=== PATIENT | male | born 1985 | race African-American/Black ===

== ENCOUNTER 2017-01-05 18:34 | Emergency (ER) | payer SELFPAY ==
[~2017-01-05] VITALS: Ht 175.3 cm; Wt 115.6 kg
[2017-01-05 18:40] VITALS: BP 133/92
[2017-01-05] MEDS ORDERED: BACTRIM,SEPT1 TABLET PO (19:37)
[2017-01-05] MEDS ORDERED: KEFLEX500 MG PO (19:37)
== END 2017-01-05 20:05 | disposition home or self-care (01) ==
LOC: EME 18:34
DX: L02.01 Cutaneous abscess of face (principal)
CPT/HCPCS: 99281; 99283

== ENCOUNTER 2017-12-23 14:42 | Inpatient (IN) | payer BC ==
[~2017-12-23] VITALS: Ht 175.3 cm; Wt 113.3 kg
[~2017-12-23 14:42] MED LIST: BACTRIM,SEPT1 TABLET PO; KEFLEX500 MG PO
[2017-12-23 15:43] LABS: HEMATOCRIT 41.5 % (38.0-50.0); HEMOGLOBIN 13.6 G/DL (12.5-16.6); MCH 27.8 PG (29.0-34.0); MCHC 32.8 G/DL (30.0-36.0); MCV 84.9 FL (86-99); PLATELET COUNT 288 K/uL (156-360); RBC DIS.WIDTH-CV 13.2 % (11.8-14.6); RBC DIS.WIDTH-SD 40.6 % (39-53); RED BLOOD COUNT 4.89 M/uL (4.00-5.50); WHITE BLOOD COUNT 16.8 K/uL (4.1-10.2)
[2017-12-23 16:04] LABS: CHLORIDE 101 mEq/L (99-109); POTASSIUM 4.2 mEq/L (3.7-5.4); SODIUM 138 mEq/L (136-147)
[2017-12-23 16:05] LABS: GLUCOSE 109 mg/dL (70-99)
[2017-12-23 16:09] LABS: CREATININE 1.4 mg/dL (0.6-1.3); GFR ESTIMATE (CALCULATED) > 59 mL/min/ (58.99-99999)
[2017-12-23 16:10] LABS: UREA NITROGEN (BUN) 14 mg/dL (9-23)
[2017-12-23 16:12] LABS: URIC ACID 8.7 mg/dL (3.1-9.2)
[2017-12-23 16:59] LABS: ERTH.SED.RATE 97 MM/HR (0-15)
[2017-12-24 00:05] VITALS: BP 130/81
[2017-12-24 05:26] VITALS: BP 125/76
[2017-12-24 06:18] LABS: BASOPHIL (%) 0.4 % (0-1); EOSINOPHIL (%) 2.7 % (0-5); EOSINOPHIL COUNT 0.3 K/uL (0-0.3); HEMATOCRIT 37.3 % (38.0-50.0); IMMATURE GRANULOCYTE (%) 0.4 % (0.0-0.7); LYMPHOCYTE (%) 18.7 % (15-42); LYMPHOCYTE COUNT 2.1 K/uL (1.0-2.8); MCH 26.8 PG (29.0-34.0); MCHC 31.1 G/DL (30.0-36.0); MCV 86.1 FL (86-99); MONOCYTE COUNT 1.3 K/uL (0-0.8); NEUTROPHIL (%) 65.8 % (45-76); NEUTROPHIL COUNT 7.4 K/uL (1.8-6.4); PLATELET COUNT 266 K/uL (156-360); RBC DIS.WIDTH-CV 13.2 % (11.8-14.6); RBC DIS.WIDTH-SD 41.1 % (39-53); RED BLOOD COUNT 4.33 M/uL (4.00-5.50); WHITE BLOOD COUNT 11.2 K/uL (4.1-10.2)
[2017-12-24 06:23] LABS: HEMOGLOBIN 11.6 G/DL (12.5-16.6)
[2017-12-24 06:26] LABS: CHLORIDE 102 MEQ/L (99-109); CREATININE 1.2 MG/DL (0.6-1.3); GFR ESTIMATE (CALCULATED) > 59 mL/min/ (58.99-99999); GLUCOSE 121 mg/dL (70-99); POTASSIUM 3.8 MEQ/L (3.7-5.4); SODIUM 140 MEQ/L (136-147); UREA NITROGEN (BUN) 19 mg/dL (9-23)
[2017-12-24 06:55] LABS: INTER. NORMALIZED RATIO 1.3
[2017-12-24 06:58] LABS: PTT 29.2 SEC (25-37)
[2017-12-24 08:24] VITALS: BP 155/88
[2017-12-24 11:28] LABS: CRYSTALS NO CRYSTALS SEEN
[2017-12-24 12:14] LABS: APPEARANCE YELLOW-CLEAR; MONONUCLEAR WBC'S 9 %; POLYNUCLEAR WBC'S 91 % (0-25); RED CELL COUNT 1000 /MM^3 (0-1); SYNOVIAL FLUID EOSINOPHILS 0 % (0-25); WHITE CELL COUNT 780 /MM^3 (0-200.0)
[2017-12-24 16:11] VITALS: BP 142/79
[2017-12-24 19:30] VITALS: BP 134/83
[2017-12-24 23:41] VITALS: BP 134/91
[2017-12-25 06:59] LABS: BASOPHIL (%) 0.5 % (0-1); EOSINOPHIL (%) 4.1 % (0-5); EOSINOPHIL COUNT 0.3 K/uL (0-0.3); HEMATOCRIT 38.6 % (38.0-50.0); IMMATURE GRANULOCYTE (%) 0.3 % (0.0-0.7); LYMPHOCYTE (%) 23.5 % (15-42); LYMPHOCYTE COUNT 1.7 K/uL (1.0-2.8); MCHC 31.1 G/DL (30.0-36.0); MCV 86.7 FL (86-99); MONOCYTE COUNT 0.7 K/uL (0-0.8); NEUTROPHIL (%) 62.6 % (45-76); NEUTROPHIL COUNT 4.6 K/uL (1.8-6.4); PLATELET COUNT 276 K/uL (156-360); RBC DIS.WIDTH-SD 41.4 % (39-53); RED BLOOD COUNT 4.45 M/uL (4.00-5.50); WHITE BLOOD COUNT 7.4 K/uL (4.1-10.2)
[2017-12-25 07:27] LABS: CHLORIDE 105 MEQ/L (99-109); CREATININE 0.9 MG/DL (0.6-1.3); GFR ESTIMATE (CALCULATED) > 59 mL/min/ (58.99-99999); GLUCOSE 105 mg/dL (70-99); POTASSIUM 4.4 MEQ/L (3.7-5.4); SODIUM 139 MEQ/L (136-147); UREA NITROGEN (BUN) 9 mg/dL (9-23)
[2017-12-25 08:07] VITALS: BP 157/91
[2017-12-25 16:57] VITALS: BP 149/87
[2017-12-25 23:52] VITALS: BP 157/88
[2017-12-26 07:23] VITALS: BP 138/74
[2017-12-26 15:42] VITALS: BP 138/90
[2017-12-26 23:34] VITALS: BP 135/76
[2017-12-27 08:23] VITALS: BP 140/71
[2017-12-27] MEDS ORDERED: ANCEF,KEFZOL1 GM IM (12:27)
[2017-12-27] MEDS ORDERED: ANCEF,KEFZOL1 GM IV (13:52)
[2017-12-27 15:54] VITALS: BP 160/58
[2017-12-27 23:40] VITALS: BP 137/88
[2017-12-28 08:00] VITALS: BP 160/80
[2017-12-28] MEDS ORDERED: HYDROCODON-ACE1 EAC7 PO (16:50)
[2017-12-28] MEDS ORDERED: MOTRIN600 MG PO (16:50)
== END 2017-12-28 17:30 | disposition home or self-care (01) | DRG 603 ==
LOC: EME 14:42 → EDOF 22:14 → 3EAST 22:14 → ENRESERV 22:16 → CANRESERV 23:16 → 3EAST 23:56
PROVIDERS: Hospitalist; Internal Medicine; Physician Assistant
PROC: 02HV33Z Insertion of Infusion Device into Superior Vena Cava, Percutaneous Approach (ICD-10-PCS; principal; 2017-12-27)
DX: L03.116 Cellulitis of left lower limb (principal); S86.812A Strain of other muscle(s) and tendon(s) at lower leg level, left leg, initial encounter; S83.006A Unspecified dislocation of unspecified patella, initial encounter; G89.18 Other acute postprocedural pain; Z48.812 Encounter for surgical aftercare following surgery on the circulatory system; X58.XXXA Exposure to other specified factors, initial encounter; Y93.9 Activity, unspecified; Z96.652 Presence of left artificial knee joint; Y92.9 Unspecified place or not applicable; Y99.0 Civilian activity done for income or pay
CPT/HCPCS: 73721; 76937; 80048; 80202; 84550; 85025; 85027; 85610; 85651; 85730; 86140; 87040; 87070; 87075; 87205; 89051; 89060; 93971; 94799; 99281; 99285; C1751; C1894; J0690; J1885; J3370; J7030